=== PATIENT | male | born 1945 | race Caucasian/White ===

== ENCOUNTER 2016-07-07 00:42 | Inpatient (IN) | payer MEDICARE, MEDICAID ==
[~2016-07-07] VITALS: Ht 162.6 cm; Wt 53.0 kg
[~2016-07-07 00:42] MED LIST: APRESOLINE 25MG25 MG PO; AURYXIA1 GM PO; CATAPRES 0.1MG0.1 MG PO; CEFTIN500 MG PO; COLACE 100100 MG/CAP PO; COQ(10)1010 MG PO; COREG 25MG25 MG/TAB PO; COREG 6.256.25 MG/TA PO; COREG12.5 MG PO; DULCOLAX S10 MG/SUPP RC; FLOMAX; FLOMAX 0.40.4 MG/CAP PO; FOLIC ACID 11 MG/TA1 PO; LEVEMIR SQ; LEVEMIR100 U/ML SC; LEVEMIR100 U/ML SQ; LISINOPRIL20 MG PO; LOPRESSOR 550 MG/TAB PO; METOCLOPRAM PO; MIRALAX PA17 GM/Dose PO; NEPHROCAP PO; NEURONTIN100 MG/CAP PO; NORCO 325 MG-51 TAB PO; NORVASC 10MG10 MG PO; NOVLOG SQ; PEPCID 20MG TAB20 MG PO; PLAVIX 75MG TAB75 MG PO; PRINIVIL10 MG PO; PRINIVIL20 MG PO; TRIPHROCAPS SOFT1 MG PO; TYLENOL 500MG500 MG PO; VITAMIN B-6100 MG; VITAMIN B-6100 MG PO; VITAMIN C500 MG PO; VYTORIN; VYTORIN 10 MG-11 TAB PO; ZESTRIL 20MG TA20 MG PO; ZESTRIL2.5 MG PO; ZESTRIL40 MG PO; ZOFRAN ODT4 MG PO; ZOFRAN ODT8 MG PO; ZOLOFT 25MG25 MG PO; [UNRECOGNIZED DRUG - OTHER] PO; [UNRECOGNIZED DRUG - OTHER] PO
[2016-07-07 02:32] VITALS: BP 175/79; PULSE 82; TEMP 98.8
[2016-07-07 04:11] VITALS: BP 163/55; PULSE 72; TEMP 97.4
[2016-07-07 04:25] LABS: PH 8 (5-8); SQUAMOUS EPITHELIAL None Seen /hpf; URINE APPEARANCE Hazy; URINE BACTERIA None Seen /hpf; URINE BILIRUBIN Negative (NEGATIVE); URINE BLOOD 1+ (NEGATIVE); URINE COLOR Yellow; URINE GLUCOSE 2+ (NEGATIVE); URINE KETONE Negative (NEGATIVE); URINE RBC 0-2 /hpf; URINE UROBILINOGEN Negative (NEGATIVE)
[2016-07-07 04:26] LABS: URINE WBC 0-2 /hpf
[2016-07-07] MEDS ORDERED: LEVEMIR100 U/ML SQ (04:36)
[2016-07-07] MEDS ORDERED: DULCOLAX S10 MG/SUPP RC (04:42)
[2016-07-07] MEDS ORDERED: ZOFRAN8 MG PO (04:44)
[2016-07-07] MEDS ORDERED: NEPHROCAP PO (04:45)
[2016-07-07] MEDS ORDERED: COREG12.5 MG PO (04:49)
[2016-07-07] MEDS ORDERED: AURYXIA1 GM PO (04:50)
[2016-07-07 07:25] LABS: BASO % 0.4 % (0.0-2.0); EOS # 0.2 (0.0-0.7); EOS % 2.3 % (0-4.0); GRAN # 5.3 (1.4-6.5); GRAN % 69.2 % (42.2-75.2); LYMPH # 1.4 (1.2-3.4); LYMPH % 18.2 % (20.0-51.0); MEAN CELL VOLUME 95 fl (80.0-100.0); MEAN CORPUSCULAR HGB CONC 33 g/dl (33.0-37.0); MEAN PLATELET VOLUME 9.6 fl (7.4-10.4); MONO # 0.8 (0.1-0.6); MONO % 9.8 % (1.7-9.3); PLATELET COUNT 134 K/mm3 (130-400); WHITE BLOOD COUNT 7.7 K/mm3 (4.8-10.8)
[2016-07-07 07:27] LABS: HEMATOCRIT 26.7 % (42.0-52.0); HEMOGLOBIN 8.9 g/dl (13.5-18.0); MEAN CORPUSCULAR HEMOGLOBIN 32 pg (27.0-31.0)
[2016-07-07 07:28] LABS: CALCIUM 8.6 mg/dL (8.4-10.2); POTASSIUM 4.4 mmol/L (3.4-5.0)
[2016-07-07 07:30] LABS: CREATININE, serum 5.56 mg/dL (0.66-1.25)
[2016-07-07 07:39] VITALS: BP 164/58; PULSE 66; TEMP 97.2
[2016-07-07 12:20] LABS: TROPONIN-I 0.494 ng/mL (0.000-0.034)
[2016-07-07 16:58] VITALS: BP 168/68; PULSE 68; TEMP 97.7
[2016-07-07 19:29] VITALS: BP 147/53; PULSE 83; TEMP 98.7
[2016-07-07 23:33] VITALS: BP 144/52; PULSE 67; TEMP 98.7
[2016-07-08] VITALS (11 sets, daily range): BP systolic 115–190; BP diastolic 53–80; PULSE 56–89; TEMP 97.8–98.7
[2016-07-08 10:23] LABS: BASO % 0.2 % (0.0-2.0); EOS % 0.2 % (0-4.0); GRAN # 7.4 (1.4-6.5); GRAN % 84.7 % (42.2-75.2); LYMPH # 0.9 (1.2-3.4); LYMPH % 10.2 % (20.0-51.0); MEAN CELL VOLUME 96 fl (80.0-100.0); MEAN CORPUSCULAR HGB CONC 33 g/dl (33.0-37.0); MEAN PLATELET VOLUME 9.9 fl (7.4-10.4); MONO # 0.4 (0.1-0.6); MONO % 4.5 % (1.7-9.3); PLATELET COUNT 154 K/mm3 (130-400); RED BLOOD COUNT 3.15 M/mm3 (4.20-5.60); REDCELL DISTRIBUTION WIDTH-CV 15.1 % (11.5-14.5); WHITE BLOOD COUNT 8.7 K/mm3 (4.8-10.8)
[2016-07-08 10:24] LABS: HEMATOCRIT 30.3 % (42.0-52.0); HEMOGLOBIN 10.1 g/dl (13.5-18.0); MEAN CORPUSCULAR HEMOGLOBIN 32 pg (27.0-31.0)
[2016-07-08 11:15] LABS: ALBUMIN 3.8 gm/dL (3.5-5.0); CALCIUM 8.9 mg/dL (8.4-10.2); PHOSPHOROUS 5.2 mg/dL (2.5-4.5); POTASSIUM 4.1 mmol/L (3.4-5.0)
[2016-07-08 11:27] LABS: CREATININE, serum 4.56 mg/dL (0.66-1.25); TROPONIN-I 0.858 ng/mL (0.000-0.034)
[2016-07-09 03:32] VITALS: BP 159/60; PULSE 60; TEMP 98.2
[2016-07-09 07:12] LABS: BASO % 0.3 % (0.0-2.0); EOS # 0.2 (0.0-0.7); EOS % 3.3 % (0-4.0); GRAN # 5.4 (1.4-6.5); GRAN % 76.6 % (42.2-75.2); LYMPH # 0.9 (1.2-3.4); LYMPH % 12.6 % (20.0-51.0); MEAN CELL VOLUME 96 fl (80.0-100.0); MEAN CORPUSCULAR HGB CONC 34 g/dl (33.0-37.0); MEAN PLATELET VOLUME 9.8 fl (7.4-10.4); MONO # 0.5 (0.1-0.6); MONO % 6.9 % (1.7-9.3); PLATELET COUNT 152 K/mm3 (130-400); REDCELL DISTRIBUTION WIDTH-CV 14.9 % (11.5-14.5); WHITE BLOOD COUNT 7.1 K/mm3 (4.8-10.8)
[2016-07-09 07:21] LABS: ALBUMIN 3.4 gm/dL (3.5-5.0); CALCIUM 8.5 mg/dL (8.4-10.2); PHOSPHOROUS 5.3 mg/dL (2.5-4.5); POTASSIUM 3.7 mmol/L (3.4-5.0)
[2016-07-09 07:22] LABS: HEMOGLOBIN 8.7 g/dl (13.5-18.0); MEAN CORPUSCULAR HEMOGLOBIN 32 pg (27.0-31.0)
[2016-07-09 07:26] LABS: CREATININE, serum 5.75 mg/dL (0.66-1.25)
[2016-07-09 12:20] VITALS: BP 152/53; PULSE 72
[2016-07-09 12:22] VITALS: BP 147/56; PULSE 71
[2016-07-09 12:23] VITALS: BP 152/64; PULSE 72
[2016-07-09 16:38] VITALS: BP 173/42; PULSE 63; TEMP 98.6
[2016-07-09 21:07] VITALS: BP 141/57; PULSE 56; TEMP 98.3
[2016-07-10] VITALS (12 sets, daily range): BP systolic 135–207; BP diastolic 44–91; PULSE 55–65; TEMP 97.6–98.9
[2016-07-10 08:01] LABS: BASO % 0.5 % (0.0-2.0); EOS # 0.2 (0.0-0.7); EOS % 3.1 % (0-4.0); GRAN # 3.3 (1.4-6.5); GRAN % 54.4 % (42.2-75.2); LYMPH # 1.9 (1.2-3.4); LYMPH % 30.2 % (20.0-51.0); MEAN CELL VOLUME 96 fl (80.0-100.0); MEAN CORPUSCULAR HGB CONC 34 g/dl (33.0-37.0); MEAN PLATELET VOLUME 9.8 fl (7.4-10.4); MONO # 0.7 (0.1-0.6); MONO % 11.6 % (1.7-9.3); PLATELET COUNT 187 K/mm3 (130-400); RED BLOOD COUNT 2.93 M/mm3 (4.20-5.60); REDCELL DISTRIBUTION WIDTH-CV 14.8 % (11.5-14.5); WHITE BLOOD COUNT 6.1 K/mm3 (4.8-10.8)
[2016-07-10 08:09] LABS: HEMATOCRIT 28.1 % (42.0-52.0); HEMOGLOBIN 9.4 g/dl (13.5-18.0); MEAN CORPUSCULAR HEMOGLOBIN 32 pg (27.0-31.0)
[2016-07-10 08:16] LABS: ALBUMIN 3.8 gm/dL (3.5-5.0); CALCIUM 8.9 mg/dL (8.4-10.2); PHOSPHOROUS 3.8 mg/dL (2.5-4.5); POTASSIUM 4.5 mmol/L (3.4-5.0)
[2016-07-10 09:03] LABS: CREATININE, serum 4.43 mg/dL (0.66-1.25)
== END 2016-07-10 21:05 | disposition short-term general hospital (02) | DRG 250 ==
LOC: MEDICAL 00:42 → ICU 07-10 17:32
PROVIDERS: Internal Medicine; Internal Medicine Interventional Cardiology; Internal Medicine Nephrology
PROC: 5A1D60Z (ICD-10-PCS; principal; 2016-07-07)
PROC: 02713ZZ Dilation of Coronary Artery, Two Arteries, Percutaneous Approach (ICD-10-PCS; principal; 2016-07-07)
PROC: B2111ZZ Fluoroscopy of Multiple Coronary Arteries using Low Osmolar Contrast (ICD-10-PCS; 2016-07-10)
PROC: B2151ZZ Fluoroscopy of Left Heart using Low Osmolar Contrast (ICD-10-PCS; 2016-07-10)
PROC: 4A023N7 Measurement of Cardiac Sampling and Pressure, Left Heart, Percutaneous Approach (ICD-10-PCS; 2016-07-10)
DX: I21.4 Non-ST elevation (NSTEMI) myocardial infarction (principal); N18.6 End stage renal disease; I13.2 Hypertensive heart and chronic kidney disease with heart failure and with stage 5 chronic kidney disease, or end stage renal disease; E87.70 Fluid overload, unspecified; E11.22 Type 2 diabetes mellitus with diabetic chronic kidney disease; Z99.2 Dependence on renal dialysis; D63.1 Anemia in chronic kidney disease; Z87.891 Personal history of nicotine dependence; I25.110 Atherosclerotic heart disease of native coronary artery with unstable angina pectoris; I95.3 Hypotension of hemodialysis
CPT/HCPCS: A9502; C1725; C1760; C1769; C1887; C1894; J0583; J0882; J1327; J1644; J1815; J2250; J2785; J2916; J3010; Q9967

== ENCOUNTER 2016-08-04 06:39 | Inpatient (IN) | payer MEDICARE, MEDICAID ==
[~2016-08-04] VITALS: Ht 162.6 cm; Wt 45.0 kg
[2016-08-04] VITALS (381 sets, daily range): BP systolic 158–196; BP diastolic 71–94; PULSE 74–121; TEMP 98.4–99.3; O2SAT 85–100
[~2016-08-04 06:39] MED LIST changes: +ZOFRAN8 MG PO
[2016-08-04] MEDS ORDERED: IMDUR 60MG60 MG/TAB PO (08:41)
[2016-08-04] MEDS ORDERED: COUMADIN 1MG1 MG/TAB PO (08:44)
[2016-08-04] MEDS ORDERED: ASPIRIN E.C. 8181 MG PO (08:44)
[2016-08-04] MEDS ORDERED: LIPITOR 80MG80 MG PO (08:45)
[2016-08-04] MEDS ORDERED: REGLAN 5MG T5 MG/TAB PO (08:56)
[2016-08-04] MEDS ORDERED: APRESOLINE50 MG PO (08:56)
[2016-08-04] MEDS ORDERED: ZOLOFT 50MG50 MG PO (08:58)
[2016-08-04] MEDS ORDERED: CATAPRES 0.1MG0.1 MG PO (09:06)
[2016-08-04 11:30] LABS: POTASSIUM 4.4 mmol/L (3.4-5.0)
[2016-08-04 11:43] LABS: INR 1.2 (0.8-3.0); PROTHROMBIN TIME 13.6 SECONDS (9.7-12.8)
[2016-08-04 12:11] LABS: TROPONIN-I 0.186 ng/mL (0.000-0.034)
[2016-08-04 16:57] LABS: CALCIUM 7.9 mg/dL (8.4-10.2); CREATININE, serum 2.78 mg/dL (0.66-1.25); POTASSIUM 3.5 mmol/L (3.4-5.0)
[2016-08-04 17:30] LABS: TROPONIN-I 0.179 ng/mL (0.000-0.034)
[2016-08-05] VITALS (286 sets, daily range): BP systolic 123–172; BP diastolic 65–100; PULSE 64–122; TEMP 97.2–98.5; O2SAT 84–100
[2016-08-05 08:36] LABS: INR 1.2 (0.8-3.0); PROTHROMBIN TIME 13.6 SECONDS (9.7-12.8)
[2016-08-05 08:39] LABS: MEAN CELL VOLUME 101 fl (80.0-100.0); MEAN CORPUSCULAR HGB CONC 33 g/dl (33.0-37.0); MEAN PLATELET VOLUME 9.4 fl (7.4-10.4); PLATELET COUNT 181 K/mm3 (130-400); RED BLOOD COUNT 2.36 M/mm3 (4.20-5.60); REDCELL DISTRIBUTION WIDTH-CV 14.1 % (11.5-14.5); WHITE BLOOD COUNT 7.2 K/mm3 (4.8-10.8)
[2016-08-05 08:40] LABS: HEMATOCRIT 23.9 % (42.0-52.0); HEMOGLOBIN 7.8 g/dl (13.5-18.0); MEAN CORPUSCULAR HEMOGLOBIN 33 pg (27.0-31.0)
[2016-08-05 08:46] LABS: ALBUMIN 3.5 gm/dL (3.5-5.0); CALCIUM 8.3 mg/dL (8.4-10.2); CREATININE, serum 3.47 mg/dL (0.66-1.25); PHOSPHOROUS 4.4 mg/dL (2.5-4.5); POTASSIUM 4.2 mmol/L (3.4-5.0)
[2016-08-06] VITALS (404 sets, daily range): BP systolic 110–175; BP diastolic 46–73; PULSE 59–101; TEMP 97.3–98.5; O2SAT 88–100
[2016-08-06 06:45] LABS: MEAN CELL VOLUME 101 fl (80.0-100.0); MEAN CORPUSCULAR HGB CONC 32 g/dl (33.0-37.0); MEAN PLATELET VOLUME 9.6 fl (7.4-10.4); PLATELET COUNT 176 K/mm3 (130-400); RED BLOOD COUNT 2.15 M/mm3 (4.20-5.60); REDCELL DISTRIBUTION WIDTH-CV 14.1 % (11.5-14.5); WHITE BLOOD COUNT 5.7 K/mm3 (4.8-10.8)
[2016-08-06 06:51] LABS: ALBUMIN 3.6 gm/dL (3.5-5.0); CALCIUM 8.5 mg/dL (8.4-10.2); CREATININE, serum 3.22 mg/dL (0.66-1.25); PHOSPHOROUS 4.1 mg/dL (2.5-4.5)
[2016-08-06 06:59] LABS: HEMATOCRIT 21.7 % (42.0-52.0); MEAN CORPUSCULAR HEMOGLOBIN 33 pg (27.0-31.0)
[2016-08-06 07:06] LABS: INR 1.3 (0.8-3.0); PROTHROMBIN TIME 14.6 SECONDS (9.7-12.8)
[2016-08-07] VITALS (7 sets, daily range): BP systolic 146–180; BP diastolic 60–79; PULSE 64–110; TEMP 98–99.3
[2016-08-07 07:03] LABS: MEAN CELL VOLUME 97 fl (80.0-100.0); MEAN CORPUSCULAR HGB CONC 33 g/dl (33.0-37.0); MEAN PLATELET VOLUME 9.5 fl (7.4-10.4); PLATELET COUNT 191 K/mm3 (130-400); RED BLOOD COUNT 3.21 M/mm3 (4.20-5.60); REDCELL DISTRIBUTION WIDTH-CV 16.5 % (11.5-14.5); WHITE BLOOD COUNT 6.5 K/mm3 (4.8-10.8)
[2016-08-07 07:06] LABS: HEMATOCRIT 31.2 % (42.0-52.0); HEMOGLOBIN 10.2 g/dl (13.5-18.0); MEAN CORPUSCULAR HEMOGLOBIN 32 pg (27.0-31.0)
[2016-08-07 07:08] LABS: INR 1.5 (0.8-3.0); PROTHROMBIN TIME 17.2 SECONDS (9.7-12.8)
[2016-08-07 07:19] LABS: ALBUMIN 3.7 gm/dL (3.5-5.0); CALCIUM 8.6 mg/dL (8.4-10.2); CREATININE, serum 2.89 mg/dL (0.66-1.25); POTASSIUM 4.2 mmol/L (3.4-5.0)
[2016-08-08 04:40] VITALS: BP 171/51; PULSE 64; TEMP 98.2
[2016-08-08 07:47] LABS: MEAN CELL VOLUME 94 fl (80.0-100.0); MEAN CORPUSCULAR HGB CONC 34 g/dl (33.0-37.0); MEAN PLATELET VOLUME 9.6 fl (7.4-10.4); PLATELET COUNT 176 K/mm3 (130-400); RED BLOOD COUNT 2.98 M/mm3 (4.20-5.60); REDCELL DISTRIBUTION WIDTH-CV 15.3 % (11.5-14.5); WHITE BLOOD COUNT 6.7 K/mm3 (4.8-10.8)
[2016-08-08 07:50] LABS: HEMOGLOBIN 9.6 g/dl (13.5-18.0); MEAN CORPUSCULAR HEMOGLOBIN 32 pg (27.0-31.0)
[2016-08-08 07:53] LABS: INR 1.7 (0.8-3.0); PROTHROMBIN TIME 19.2 SECONDS (9.7-12.8)
[2016-08-08 07:58] LABS: ALBUMIN 3.5 gm/dL (3.5-5.0); CALCIUM 8.4 mg/dL (8.4-10.2); PHOSPHOROUS 2.7 mg/dL (2.5-4.5); POTASSIUM 4.3 mmol/L (3.4-5.0)
[2016-08-08 08:02] LABS: CREATININE, serum 4.41 mg/dL (0.66-1.25)
[2016-08-08 12:00] VITALS: BP 152/94; PULSE 74; TEMP 98.1
[2016-08-08 16:11] VITALS: BP 171/81; PULSE 78; TEMP 98.2
[2016-08-08 21:06] VITALS: BP 180/54; PULSE 66; TEMP 98.8
[2016-08-09] VITALS (7 sets, daily range): BP systolic 157–199; BP diastolic 56–90; PULSE 60–102; TEMP 97.7–98.7
[2016-08-09 07:42] LABS: INR 1.8 (0.8-3.0); MEAN CELL VOLUME 95 fl (80.0-100.0); MEAN CORPUSCULAR HGB CONC 34 g/dl (33.0-37.0); MEAN PLATELET VOLUME 9.5 fl (7.4-10.4); PLATELET COUNT 225 K/mm3 (130-400); PROTHROMBIN TIME 20.5 SECONDS (9.7-12.8); RED BLOOD COUNT 3.39 M/mm3 (4.20-5.60); REDCELL DISTRIBUTION WIDTH-CV 14.8 % (11.5-14.5); WHITE BLOOD COUNT 5.9 K/mm3 (4.8-10.8)
[2016-08-09 07:47] LABS: HEMATOCRIT 32.1 % (42.0-52.0); HEMOGLOBIN 10.9 g/dl (13.5-18.0); MEAN CORPUSCULAR HEMOGLOBIN 32 pg (27.0-31.0)
[2016-08-09 08:17] LABS: ALBUMIN 3.7 gm/dL (3.5-5.0); CALCIUM 8.6 mg/dL (8.4-10.2); CREATININE, serum 3.28 mg/dL (0.66-1.25); PHOSPHOROUS 2.2 mg/dL (2.5-4.5); POTASSIUM 4.1 mmol/L (3.4-5.0)
[2016-08-10 00:13] VITALS: BP 176/60; PULSE 62; TEMP 98.5
[2016-08-10 03:52] VITALS: BP 171/52; PULSE 60; TEMP 98.2
[2016-08-10 08:19] LABS: HEMATOCRIT 29.1 % (42.0-52.0); MEAN CELL VOLUME 94 fl (80.0-100.0); MEAN CORPUSCULAR HEMOGLOBIN 32 pg (27.0-31.0); MEAN CORPUSCULAR HGB CONC 34 g/dl (33.0-37.0); MEAN PLATELET VOLUME 9.2 fl (7.4-10.4); PLATELET COUNT 202 K/mm3 (130-400); RED BLOOD COUNT 3.11 M/mm3 (4.20-5.60); REDCELL DISTRIBUTION WIDTH-CV 14.6 % (11.5-14.5); WHITE BLOOD COUNT 6.7 K/mm3 (4.8-10.8)
[2016-08-10 08:23] LABS: INR 1.8 (0.8-3.0); PROTHROMBIN TIME 20.8 SECONDS (9.7-12.8)
[2016-08-10 08:54] LABS: ALBUMIN 3.2 gm/dL (3.5-5.0); CALCIUM 8.2 mg/dL (8.4-10.2); PHOSPHOROUS 2.3 mg/dL (2.5-4.5)
[2016-08-10 08:59] LABS: CREATININE, serum 4.7 mg/dL (0.66-1.25)
[2016-08-10] MEDS ORDERED: COREG 25MG25 MG/TAB PO (10:20)
[2016-08-10] MEDS ORDERED: CORDARONE200 MG/TAB PO (10:54)
[2016-08-10 11:15] VITALS: BP 138/47; PULSE 60; TEMP 97.7
== END 2016-08-10 14:18 | disposition home health service (06) | DRG 242 ==
LOC: SURG 06:39 → ICU 11:44 → IMCU 18:10 → MEDICAL 21:01 → IMCU 08-05 11:28 → ICU 08-05 14:27 → MEDICAL 08-06 18:56
PROVIDERS: Internal Medicine Nephrology; Nurse Practitioner
PROC: 5A1D60Z (ICD-10-PCS; 2016-08-04)
PROC: 0JH606Z Insertion of Pacemaker, Dual Chamber into Chest Subcutaneous Tissue and Fascia, Open Approach (ICD-10-PCS; principal; 2016-08-05)
PROC: 02H63JZ Insertion of Pacemaker Lead into Right Atrium, Percutaneous Approach (ICD-10-PCS; 2016-08-05)
PROC: 02HK3JZ Insertion of Pacemaker Lead into Right Ventricle, Percutaneous Approach (ICD-10-PCS; 2016-08-05)
PROC: 02WA3MZ Revision of Cardiac Lead in Heart, Percutaneous Approach (ICD-10-PCS; 2016-08-06)
DX: I16.0 Hypertensive urgency (principal); N18.6 End stage renal disease; I45.2 Bifascicular block; T82.120A Displacement of cardiac electrode, initial encounter; E87.79 Other fluid overload; I49.5 Sick sinus syndrome; I48.0 Paroxysmal atrial fibrillation; I12.0 Hypertensive chronic kidney disease with stage 5 chronic kidney disease or end stage renal disease; E11.22 Type 2 diabetes mellitus with diabetic chronic kidney disease; D63.1 Anemia in chronic kidney disease; Z87.891 Personal history of nicotine dependence; Z99.2 Dependence on renal dialysis; I25.10 Atherosclerotic heart disease of native coronary artery without angina pectoris
CPT/HCPCS: C1769; C1785; C1892; C1898; J0690; J0882; J1170; J1815; J2250; J2916; J3010; J7040; J7050; P9016; Q9967

== ENCOUNTER 2016-08-27 02:31 | Emergency (ER) | payer MEDICARE, MEDICAID ==
[~2016-08-27] VITALS: Ht 162.6 cm; Wt 53.6 kg
[~2016-08-27 02:31] MED LIST changes: +APRESOLINE50 MG PO; +ASPIRIN E.C. 8181 MG PO; +CORDARONE200 MG/TAB PO; +COUMADIN 1MG1 MG/TAB PO; +IMDUR 60MG60 MG/TAB PO; +LIPITOR 80MG80 MG PO; +REGLAN 5MG T5 MG/TAB PO; +ZOLOFT 50MG50 MG PO
[2016-08-27 02:43] VITALS: TEMP 97.8
[2016-08-27 02:55] LABS: BASO % 0.4 % (0.0-2.0); EOS # 0.3 (0.0-0.7); EOS % 3.6 % (0-4.0); GRAN % 74.7 % (42.2-75.2); LYMPH % 12.9 % (20.0-51.0); MEAN CELL VOLUME 97 fl (80.0-100.0); MEAN CORPUSCULAR HGB CONC 33 g/dl (33.0-37.0); MEAN PLATELET VOLUME 10.1 fl (7.4-10.4); MONO # 0.7 (0.1-0.6); MONO % 8.1 % (1.7-9.3); PLATELET COUNT 185 K/mm3 (130-400); RED BLOOD COUNT 3.13 M/mm3 (4.20-5.60); REDCELL DISTRIBUTION WIDTH-CV 15.2 % (11.5-14.5)
[2016-08-27 02:56] LABS: INR 1.1 (0.8-3.0); PROTHROMBIN TIME 12.5 SECONDS (9.7-12.8)
[2016-08-27 02:57] LABS: HEMATOCRIT 30.5 % (42.0-52.0); HEMOGLOBIN 10.2 g/dl (13.5-18.0); MEAN CORPUSCULAR HEMOGLOBIN 33 pg (27.0-31.0)
[2016-08-27 03:02] LABS: ADJUSTED CALCIUM 8.4 mg/dL (8.4-10.2); ALBUMIN 3.9 gm/dL (3.5-5.0); BILIRUBIN,TOTAL 0.9 mg/dL (0.0-1.0); CALCIUM 8.3 mg/dL (8.4-10.2); POTASSIUM 5.3 mmol/L (3.4-5.0); TOTAL PROTEIN 7.5 gm/dL (6.4-8.2)
[2016-08-27 03:03] LABS: CREATININE, serum 6.32 mg/dL (0.66-1.25)
[2016-08-27 03:20] LABS: TROPONIN-I 0.076 ng/mL (0.000-0.034)
[2016-08-27 05:28] VITALS: BP 207/88; PULSE 65
== END 2016-08-27 05:28 | disposition home or self-care (01) ==
LOC: COL.ER 02:31
PROVIDERS: Family Medicine
DX: I25.119 Atherosclerotic heart disease of native coronary artery with unspecified angina pectoris (principal); I13.2 Hypertensive heart and chronic kidney disease with heart failure and with stage 5 chronic kidney disease, or end stage renal disease; Z99.2 Dependence on renal dialysis; N18.6 End stage renal disease; I50.9 Heart failure, unspecified; Z95.5 Presence of coronary angioplasty implant and graft; Z95.0 Presence of cardiac pacemaker; I45.10 Unspecified right bundle-branch block

== ENCOUNTER 2016-09-15 08:47 | Emergency (ER) | payer MEDICARE ==
[~2016-09-15] VITALS: Ht 162.6 cm; Wt 51.8 kg
[2016-09-15 08:57] VITALS: TEMP 97.7
[2016-09-15 09:44] LABS: BASO % 0.3 % (0.0-2.0); EOS # 0.2 (0.0-0.7); EOS % 3.4 % (0-4.0); GRAN # 4.6 (1.4-6.5); GRAN % 74.1 % (42.2-75.2); LYMPH # 0.9 (1.2-3.4); LYMPH % 14.1 % (20.0-51.0); MEAN CELL VOLUME 95 fl (80.0-100.0); MEAN CORPUSCULAR HGB CONC 34 g/dl (33.0-37.0); MEAN PLATELET VOLUME 10.2 fl (7.4-10.4); MONO # 0.5 (0.1-0.6); MONO % 7.9 % (1.7-9.3); PLATELET COUNT 162 K/mm3 (130-400); RED BLOOD COUNT 2.95 M/mm3 (4.20-5.60); REDCELL DISTRIBUTION WIDTH-CV 14.7 % (11.5-14.5); WHITE BLOOD COUNT 6.2 K/mm3 (4.8-10.8)
[2016-09-15 09:45] LABS: HEMATOCRIT 28.1 % (42.0-52.0); HEMOGLOBIN 9.5 g/dl (13.5-18.0); MEAN CORPUSCULAR HEMOGLOBIN 32 pg (27.0-31.0)
[2016-09-15 09:48] LABS: INR 1.5 (0.8-3.0); PROTHROMBIN TIME 16.7 SECONDS (9.7-12.8)
[2016-09-15 09:51] LABS: PARTIAL THROMBOPLASTIN TIME 33.7 SECONDS (26.0-37.0)
[2016-09-15 10:04] LABS: ADJUSTED CALCIUM 8.7 mg/dL (8.4-10.2); ALBUMIN 3.7 gm/dL (3.5-5.0); BILIRUBIN,TOTAL 0.8 mg/dL (0.0-1.0); CALCIUM 8.5 mg/dL (8.4-10.2); MAGNESIUM 1.7 mg/dL (1.6-2.3); PHOSPHOROUS 4.4 mg/dL (2.5-4.5); POTASSIUM 4.4 mmol/L (3.4-5.0); TOTAL PROTEIN 7.2 gm/dL (6.4-8.2)
[2016-09-15 10:05] LABS: CREATININE, serum 4.13 mg/dL (0.66-1.25)
[2016-09-15 10:18] LABS: TROPONIN-I 0.046 ng/mL (0.000-0.034)
[2016-09-15 11:45] VITALS: BP 214/89; PULSE 61
== END 2016-09-15 12:00 | disposition home or self-care (01) ==
LOC: COL.ER 08:47
PROVIDERS: Physician Assistant
DX: I12.0 Hypertensive chronic kidney disease with stage 5 chronic kidney disease or end stage renal disease (principal); N18.6 End stage renal disease; R51 Headache; E11.22 Type 2 diabetes mellitus with diabetic chronic kidney disease; Z99.2 Dependence on renal dialysis; Z95.0 Presence of cardiac pacemaker; I48.91 Unspecified atrial fibrillation; Z79.01 Long term (current) use of anticoagulants; Z79.4 Long term (current) use of insulin; Z91.81 History of falling; I69.954 Hemiplegia and hemiparesis following unspecified cerebrovascular disease affecting left non-dominant side
CPT/HCPCS: J1170

== ENCOUNTER 2016-09-27 22:07 | Inpatient (IN) | payer MEDICARE ==
[~2016-09-27] VITALS: Ht 162.6 cm; Wt 55.8 kg
[2016-09-27] VITALS (94 sets, daily range): BP systolic 133; BP diastolic 72; PULSE 69; TEMP 97.3; O2SAT 86–100
[2016-09-27] MEDS ORDERED: COLACE 100100 MG/CAP PO (22:17)
[2016-09-27] MEDS ORDERED: NEURONTIN100 MG/CAP PO (22:21)
[2016-09-27] MEDS ORDERED: FOLIC ACID 11 MG/TA1 PO (22:25)
[2016-09-27] MEDS ORDERED: ZOFRAN8 MG PO (22:25)
[2016-09-27 22:59] LABS: MEAN CELL VOLUME 96 fl (80.0-100.0); MEAN CORPUSCULAR HGB CONC 34 g/dl (33.0-37.0); PLATELET COUNT 170 K/mm3 (130-400); RED BLOOD COUNT 2.17 M/mm3 (4.20-5.60); REDCELL DISTRIBUTION WIDTH-CV 14.9 % (11.5-14.5); WHITE BLOOD COUNT 4.5 K/mm3 (4.8-10.8)
[2016-09-27 23:01] LABS: HEMATOCRIT 20.8 % (42.0-52.0); MEAN CORPUSCULAR HEMOGLOBIN 32 pg (27.0-31.0)
[2016-09-27 23:12] LABS: CALCIUM 8.3 mg/dL (8.4-10.2); CREATININE, serum 2.78 mg/dL (0.66-1.25); POTASSIUM 4.1 mmol/L (3.4-5.0)
[2016-09-27 23:29] LABS: TROPONIN-I 0.075 ng/mL (0.000-0.034)
[2016-09-28] VITALS (949 sets, daily range): BP systolic 60–131; BP diastolic 37–67; PULSE 58–59; TEMP 97.4–98.7; O2SAT 50–100
[2016-09-28 05:53] LABS: MEAN CELL VOLUME 98 fl (80.0-100.0); MEAN CORPUSCULAR HGB CONC 32 g/dl (33.0-37.0); MEAN PLATELET VOLUME 10.9 fl (7.4-10.4); PLATELET COUNT 194 K/mm3 (130-400); RED BLOOD COUNT 2.71 M/mm3 (4.20-5.60); WHITE BLOOD COUNT 7.9 K/mm3 (4.8-10.8)
[2016-09-28 05:57] LABS: HEMATOCRIT 26.5 % (42.0-52.0); HEMOGLOBIN 8.5 g/dl (13.5-18.0); MEAN CORPUSCULAR HEMOGLOBIN 31 pg (27.0-31.0)
[2016-09-28 06:06] LABS: CALCIUM 8.5 mg/dL (8.4-10.2); CREATININE, serum 3.29 mg/dL (0.66-1.25); POTASSIUM 4.6 mmol/L (3.4-5.0)
[2016-09-28 13:36] LABS: ARTERIAL BLD GAS O2 SATURATION 96.5 % (92-100); ARTERIAL BLD GAS TCO2 CT 21.9; ARTERIAL BLOOD GAS BASE EXCESS -2.2 (-2-2); ARTERIAL BLOOD GAS PHT 7.46 C (7.35-7.45); ARTERIAL BLOOD GAS PO2 98.8 mmHg (80-100); ARTERIAL BLOOD GAS PO2T 98.8 (80-100); ARTERIAL BLOOD GAS pH 7.46 (7.35-7.45); OXYHEMOGLOBIN 95.8 %
[2016-09-28 13:37] LABS: ATS? YES
[2016-09-28 13:46] LABS: TROPONIN-I 0.072 ng/mL (0.000-0.034)
[2016-09-28 17:06] LABS: ADJUSTED CALCIUM 9.2 mg/dL (8.4-10.2); ALBUMIN 3.1 gm/dL (3.5-5.0); BILIRUBIN,TOTAL 1.2 mg/dL (0.0-1.0); CALCIUM 8.5 mg/dL (8.4-10.2); CREATININE, serum 3.74 mg/dL (0.66-1.25); POTASSIUM 4.6 mmol/L (3.4-5.0); TOTAL PROTEIN 6.7 gm/dL (6.4-8.2)
[2016-09-28 18:00] LABS: INR 8.4 (0.8-3.0); PROTHROMBIN TIME 99.6 SECONDS (9.7-12.8)
[2016-09-29] VITALS (310 sets, daily range): BP systolic 78–114; BP diastolic 41–74; PULSE 73; TEMP 97.4; O2SAT 52–100
[2016-09-29 06:47] LABS: MEAN CELL VOLUME 98 fl (80.0-100.0); MEAN CORPUSCULAR HGB CONC 32 g/dl (33.0-37.0); MEAN PLATELET VOLUME 11.1 fl (7.4-10.4); PLATELET COUNT 191 K/mm3 (130-400); RED BLOOD COUNT 2.76 M/mm3 (4.20-5.60); REDCELL DISTRIBUTION WIDTH-CV 18.3 % (11.5-14.5); WHITE BLOOD COUNT 10.5 K/mm3 (4.8-10.8)
[2016-09-29 06:49] LABS: HEMATOCRIT 26.9 % (42.0-52.0); HEMOGLOBIN 8.7 g/dl (13.5-18.0); MEAN CORPUSCULAR HEMOGLOBIN 32 pg (27.0-31.0)
[2016-09-29 06:58] LABS: CALCIUM 9.1 mg/dL (8.4-10.2)
[2016-09-29 07:02] LABS: CREATININE, serum 4.68 mg/dL (0.66-1.25); POTASSIUM 6.2 mmol/L (3.4-5.0)
[2016-09-29 07:03] LABS: INR 5.7 (0.8-3.0); PROTHROMBIN TIME 66.7 SECONDS (9.7-12.8)
[2016-09-29 07:34] LABS: BASO % 0.2 % (0.0-2.0); GRAN # 3.8 (1.4-6.5); GRAN % 71.6 % (42.2-75.2); LYMPH # 1.1 (1.2-3.4); LYMPH % 19.8 % (20.0-51.0); MEAN CELL VOLUME 101 fl (80.0-100.0); MEAN CORPUSCULAR HGB CONC 32 g/dl (33.0-37.0); MEAN PLATELET VOLUME 11.1 fl (7.4-10.4); MONO # 0.2 (0.1-0.6); MONO % 3.9 % (1.7-9.3); RED BLOOD COUNT 1.61 M/mm3 (4.20-5.60); REDCELL DISTRIBUTION WIDTH-CV 18.6 % (11.5-14.5); WHITE BLOOD COUNT 5.4 K/mm3 (4.8-10.8)
[2016-09-29 07:38] LABS: HEMATOCRIT 16.2 % (42.0-52.0); HEMOGLOBIN 5.1 g/dl (13.5-18.0); MEAN CORPUSCULAR HEMOGLOBIN 32 pg (27.0-31.0); PLATELET COUNT 50 K/mm3 (130-400)
[2016-09-29 07:39] LABS: ADJUSTED CALCIUM 11.3 mg/dL (8.4-10.2); ALANINE AMINOTRANSFERASE 685 U/L (21-72); ALBUMIN 1.4 gm/dL (3.5-5.0); ALKALINE PHOSPHATASE 58 U/L (50-136); ANION GAP 18 mmol/L (7-16); BILIRUBIN,TOTAL 0.7 mg/dL (0.0-1.0); BLOOD UREA NITROGEN 24 mg/dL (9-20); CALCIUM 9.2 mg/dL (8.4-10.2); CHLORIDE 113 mmol/L (98-107); CREATININE, serum 2.82 mg/dL (0.66-1.25); GLUCOSE 120 mg/dL (74-106); SODIUM 143 mmol/L (137-145); TOTAL PROTEIN 3.3 gm/dL (6.4-8.2)
[2016-09-29 07:41] LABS: POTASSIUM 3.7 mmol/L (3.4-5.0)
[2016-09-29 07:43] LABS: CARBON DIOXIDE 11 mmol/L (22-30)
== END 2016-09-29 23:00 | disposition expired | DRG 682 ==
LOC: IMCU 22:07 → EU 09-28 11:17 → IMCU 09-28 11:17 → EU 09-29 18:12
PROVIDERS: Internal Medicine; Internal Medicine Nephrology
PROC: 5A1D60Z (ICD-10-PCS; principal; 2016-09-27)
DX: I12.0 Hypertensive chronic kidney disease with stage 5 chronic kidney disease or end stage renal disease (principal); N18.6 End stage renal disease; I31.3 Pericardial effusion (noninflammatory); E11.22 Type 2 diabetes mellitus with diabetic chronic kidney disease; Z99.2 Dependence on renal dialysis; Z79.4 Long term (current) use of insulin; D63.1 Anemia in chronic kidney disease; Z87.891 Personal history of nicotine dependence
CPT/HCPCS: J1815; J7030; J7060; P9016